=== PATIENT | female | born 1970 | race Caucasian/White ===

== ENCOUNTER 2018-11-17 21:27 | Emergency (ER) | payer MEDICAID ==
[~2018-11-17] VITALS: Ht 165.1 cm; Wt 48.1 kg
[~2018-11-17 21:27] MED LIST: AMOX-419 PO; BUPR75TA8 PO; FERR324T4 PO
[2018-11-17 21:45] VITALS: BP 160/86
[2018-11-17] MEDS ORDERED: LIDOcaine 1% w/epiNEPHrine 1:200,000 30ml vial IM ONE ×2 (23:30→23:35)
== END 2018-11-18 00:22 | disposition home or self-care (01) ==
LOC: ER 21:28
DX: S61.411A Laceration without foreign body of right hand, initial encounter (principal); F12.90 Cannabis use, unspecified, uncomplicated; I10 Essential (primary) hypertension; Z98.890 Other specified postprocedural states; Z98.84 Bariatric surgery status; Z88.5 Allergy status to narcotic agent; W01.198A Fall on same level from slipping, tripping and stumbling with subsequent striking against other object, initial encounter; Y93.89 Activity, other specified; Y92.89 Other specified places as the place of occurrence of the external cause; Y99.9 Unspecified external cause status
CPT/HCPCS: 12001; 99283

== ENCOUNTER 2023-02-15 05:25 | Emergency (ER) | payer MEDICAID ==
[~2023-02-15] VITALS: Ht 175.3 cm; Wt 57.7 kg
[2023-02-15 05:51] VITALS: BP 135/92
--- NOTE | 2023-02-15 08:05 | NUR ---
Paged social services counselor for consultation
[2023-02-15 08:42] LABS: HEMOGLOBIN 8.3 g/dl (12.0-16.0); MEAN CORPUSCULAR VOLUME 82.1 FL (78-98); MONOCYTES # (AUTO) 0.3 X10'3 (0-0.9); RED CELL DISTRIBUTION WIDTH 17.3 % (11.5-14.5)
[2023-02-15 08:44] LABS: BASOPHILS % (AUTO) 0.8 % (0-1); EOSINOPHILS % (AUTO) 0.9 % (0-6); HEMATOCRIT 27.1 % (35.0-45.0); LYMPHOCYTES # (AUTO) 1.5 X10'3 (1.1-4.8); LYMPHOCYTES % (AUTO) 29.6 % (21-51); MEAN CORPUSCULAR HEMOGLOBIN 25.2 PG (27.0-31.0); MEAN CORPUSCULAR HGB CONC 30.6 g/dL (33.0-36.5); MONOCYTES % (AUTO) 6.3 % (2-12); NEUTROPHILS # (AUTO) 3.2 X10'3 (1.8-7.7); NEUTROPHILS % (AUTO) 62.4 % (42-75); PLATELET COUNT 233 X10'3 (140-440); WHITE BLOOD COUNT 5.2 X10'3 (4.5-11.0)
[2023-02-15 08:50] LABS: ALANINE AMINOTRANSFERASE 36 U/L (12-78); ALBUMIN 2.1 G/DL (3.4-5.0); ALBUMIN/GLOBULIN RATIO 0.5 (1.1-1.5); ALKALINE PHOSPHATASE 143 IU/L (46-116); ANION GAP 8 (8-16); ASPARTATE AMINO TRANSFERASE 26 U/L (10-37); BILIRUBIN,TOTAL 0.6 MG/DL (0.1-1.0); BLOOD UREA NITROGEN 12 MG/DL (7-18); BUN/CREATININE RATIO 13.6 (10.0-20.0); CALCIUM 7.6 MG/DL (8.5-10.1); CHLORIDE 111 MMOL/L (99-107); CREATININE 0.88 MG/DL (0.40-0.90); ETHANOL < 0.010 GM/DL (0.0-0.010); GLUCOSE 73 MG/DL (70-104); SODIUM 141 MMOL/L (135-145); eGFR 67 ML/MIN
[2023-02-15 08:51] LABS: POTASSIUM 2.9 MMOL/L (3.5-5.1)
--- NOTE | 2023-02-15 08:58 | NUR ---
Patient sleeping comfortably at this time
[2023-02-15] MEDS ORDERED: furosemide 10 MG/1 ML 10ml inj IV ONE ×2 (09:40→11:45)
[2023-02-15] MEDS ORDERED: POTASSIUM BICARB 20meq eff tab 20 MEQ TABLET.EFF PO ONE (09:40)
--- NOTE | 2023-02-15 10:10 | NUR ---
Patient resting comfortably at this time, homeless and ordered a meal tray for patient.
[2023-02-15] MEDS ORDERED: acetaminophen 325mg tablet PO ONE (12:55)
--- NOTE | 2023-02-15 13:13 | NUR ---
Patient upset about tylenol dosing and refused, notified
--- NOTE | 2023-02-15 13:14 | NUR ---
Patient refused tylenol oral, requesting stronger pain medication. MD not ok with narcotic pain medication management at this time. Updated patient, patient upset stating, "How am I supposed to get to the bathroom?" Placed purewick and chux, changed linens and provided tray
--- NOTE | 2023-02-15 15:50 | NUR ---
assisting RN with pt care, pt wants to leave, asked for IV out, has ride with friend to the [place], pt left without dc instructions "I will come back for them"
== END 2023-02-15 15:53 | disposition home or self-care (01) ==
LOC: ER 05:26
DX: E87.6 Hypokalemia (principal); R60.9 Edema, unspecified; I10 Essential (primary) hypertension; F12.90 Cannabis use, unspecified, uncomplicated; Z88.5 Allergy status to narcotic agent; W19.XXXA Unspecified fall, initial encounter; Y93.89 Activity, other specified; Y92.89 Other specified places as the place of occurrence of the external cause; Y99.8 Other external cause status
CPT/HCPCS: 70450; 71045; 72125; 80053; 80320; 82140; 83880; 84145; 84484; 85025; 85610; 93005; 96374; 99285; J1940